=== PATIENT | female | born 1990 | race Two or more races ===

== ENCOUNTER 2021-02-03 04:55 | Emergency (ER) | payer OTHER ==
[2021-02-03 05:23] VITALS: BP 113/81; PULSE 92; TEMP 98.3; BMI 29.2
== END 2021-02-03 06:40 | disposition home or self-care (01) ==
LOC: JER 04:55
DX: H65.191 Other acute nonsuppurative otitis media, right ear (principal)
CPT/HCPCS: 87804; 87807; 99283-25; C9803-CS; U0003; U0005